=== PATIENT | female | born 1990 | race Caucasian/White ===

== ENCOUNTER 2024-02-08 12:29 | Emergency (ER) | payer OTHER, SELFPAY ==
[2024-02-08 12:46] VITALS: BP 121/78; PULSE 71; RESP 15; TEMP 36.6; O2SAT 100
--- NOTE | 2024-02-08 14:50 | ED.EAR ---
HPI - Ear Problem General Chief complaint: Ear Stated complaint: right ear clogged with drainage Time Seen by Provider: 02/08/24 14:08 History of Present Illness HPI Narrative: 33-year-old female presenting to the emergency department for evaluation for persistent right ear pain this been going on for over month. Patient states she has attempted to get follow-up with ENT but has not been successful. Patient states that she began having some bloody discharge from her right ear. Does have tympanostomy tubes in place. Related Data Allergies Allergy/AdvReac Type Severity Reaction Status Date / Time cigarette smoke Allergy Unknown Verified 02/08/24 12:36 diphenhydramine Allergy Anaphylaxis Verified 02/08/24 12:32 [From Benadryl] Penicillins Allergy Anaphylaxis Verified 02/08/24 12:32 Review of Systems Review of Systems: All systems reviewed & are unremarkable except as noted in HPI and below Exam Narrative: APPEARANCE: Well appearing, no pain, no distress, well-nourished. HEAD: normocephalic, atraumatic. EYES: PERRLA/EOMI, conjunctivae clear. NOSE: Normal no drainage EARS: Tympanostomy tube intact and visible, cerumen in ear, majority of TM obstructed THROAT: Pharynx clear, no exudate. NECK: Supple. No adenopathy, no masses. RESPIRATORY: Airway patent, respirations nonlabored. Clear to auscultation bilaterally, no rales, rhonchi, wheezing. CARDIOVASCULAR: Regular rate and rhythm without murmurs rubs or gallops. ABDOMINAL: Soft, nontender, nondistended, normal bowel sounds MUSCULOSKELETAL: Moves all extremities. Strength/ROM intact, No edema, No calf tenderness. NEURO: Alert. Cranial nerves II through XII intact. SKIN: Warm, dry. Normal Color Course Course Emergency Course: Patient is here was not irrigated due to the tympanostomy tube. Patient was started on oral antibiotics encouraged close follow-up with ENT. Vital Signs Vital signs: Vital Signs Temperature 97.9 F 02/08/24 12:46 Pulse Rate 71 02/08/24 12:46 Respiratory Rate 15 02/08/24 12:46 Blood Pressure 121/78 02/08/24 12:46 Pulse Oximetry 100 02/08/24 12:46 Temperature 97.6 F 02/08/24 15:53 Pulse Rate 84 02/08/24 15:53 Respiratory Rate 16 02/08/24 15:53 Blood Pressure 130/80 02/08/24 15:53 Pulse Oximetry 100 02/08/24 15:53 Medical Decision Making MDM Narrative Medical decision making narrative: 33-year-old female presents emergency department for evaluation for right ear pain. Patient was advised to take antibiotics as directed have close follow-up with ENT. Vital Signs Vital Signs: Vital Signs Temperature 97.9 F 02/08/24 12:46 Pulse Rate 71 02/08/24 12:46 Respiratory Rate 15 02/08/24 12:46 Blood Pressure 121/78 02/08/24 12:46 Pulse Oximetry 100 02/08/24 12:46 Temperature 97.6 F 02/08/24 15:53 Pulse Rate 84 02/08/24 15:53 Respiratory Rate 16 02/08/24 15:53 Blood Pressure 130/80 02/08/24 15:53 Pulse Oximetry 100 02/08/24 15:53 Discharge Plan Discharge Clinical Impression: Otitis media Patient Disposition: Home, Self-Care Condition: Stable Instructions: Antibiotic Form, Ear Infection (AC) Additional Instructions: Have close follow-up with your ENT. If you are unable to your ENT then follow-up with Dr. Allen. Antibiotic as directed until completed. If you have any worsening symptoms and please call or return to the emergency department. Prescriptions: New cefdinir 300 mg capsule 300 mg PO Q12H 7 Days Qty: 14 0RF Follow-up/Referrals: Brennan Allen MD [Physician] - UNKNOWN,DOCTOR [Primary Care Provider] -
[2024-02-08] MEDS: CEFDINIR 300 MG CAPSULE PO (15:30)
[2024-02-08 15:53] VITALS: BP 130/80; PULSE 84; RESP 16; TEMP 36.4; O2SAT 100
== END 2024-02-08 15:54 | disposition home or self-care (01) ==
PROVIDERS: Emergency Provider Emergency Medicine
DX: H66.91 Otitis media, unspecified, right ear (principal); Z96.22 Myringotomy tube(s) status
CPT/HCPCS: 99283; A9270

== ENCOUNTER 2024-04-02 12:13 | Emergency (ER) | payer OTHER, SELFPAY ==
--- NOTE | ~2024-04-02 | XR_ITS ---
EXAMINATION: XR knee LT 3V DATE: 04/02/2024 13:11 INDICATION: Left knee pain with bending and straightening the knee TECHNIQUE: Anteroposterior, oblique and crosstable lateral views of the left knee were obtained COMPARISON: None. FINDINGS: Alignment is normal. No fracture. Small marginal osteophytes in all 3 compartments of the knee with relatively preserved joint space on nonweightbearing imaging. Small sclerotic bone island in the dist al left femur. No joint effusion/layering lipohemarthrosis. Soft tissues are unremarkable. IMPRESSION: 1. No left knee joint effusion or acute osseous abnormality. 2. At least minimal tricompartmental osteoarthritis of the left knee although severity of joint space narrowing can be underestimated on nonweightbearing imaging. Reviewed, dictated and finalized at location B. IMPRESSION: 1. No left knee joint effusion or acute osseous abnormality. 2. At least minimal tricompartmental osteoarthritis of the left knee although s everity of joint space narrowing can be underestimated on nonweightbearing imag ing.
--- NOTE | ~2024-04-02 | XR_ITS ---
EXAMINATION: XR knee RT 3V DATE: 04/02/2024 13:11 INDICATION: Right knee pain. TECHNIQUE: 3 views of right knee were obtained. COMPARISON: None. FINDINGS: Alignment is normal. No fracture. There is mild tricompartmental osteoarthritis. There is a moderate-sized knee joint effusion. IMPRESSION: 1. Mild right knee osteoarthritis. 2. Moderate-sized knee joint effusion. Reviewed, dictated and finalized at location A.
[2024-04-02 12:20] VITALS: BP 115/81; PULSE 86; RESP 20; TEMP 37; O2SAT 100
[2024-04-02 12:38] VITALS: BP 123/81; PULSE 80; RESP 18; TEMP 36.8; O2SAT 100
--- NOTE | 2024-04-02 13:52 | ED.GENADULT ---
HPI - General Adult General Chief complaint: Extremity Injury, Lower Stated complaint: bilateral knee pain after falling in hole Time Seen by Provider: 04/02/24 12:37 Related Data Allergies Allergy/AdvReac Type Severity Reaction Status Date / Time cigarette smoke Allergy Unknown Verified 04/02/24 12:37 diphenhydramine Allergy Anaphylaxis Verified 04/02/24 12:37 [From Benadryl] Penicillins Allergy Anaphylaxis Verified 04/02/24 12:37 venlafaxine [From Effexor] Allergy Vomiting Verified 04/02/24 12:37 Course Vital Signs Vital signs: Vital Signs Temperature 98.6 F 04/02/24 12:20 Pulse Rate 86 04/02/24 12:20 Respiratory Rate 20 04/02/24 12:20 Blood Pressure 115/81 04/02/24 12:20 Pulse Oximetry 100 04/02/24 12:20 Oxygen Delivery Room Air 04/02/24 12:20 Temperature 98.3 F 04/02/24 12:38 Pulse Rate 80 04/02/24 12:38 Respiratory Rate 18 04/02/24 12:38 Blood Pressure 123/81 04/02/24 12:38 Pulse Oximetry 100 04/02/24 12:38 Oxygen Delivery Room Air 04/02/24 12:38 Medical Decision Making Vital Signs Vital Signs: Vital Signs Temperature 98.6 F 04/02/24 12:20 Pulse Rate 86 04/02/24 12:20 Respiratory Rate 20 04/02/24 12:20 Blood Pressure 115/81 04/02/24 12:20 Pulse Oximetry 100 04/02/24 12:20 Oxygen Delivery Room Air 04/02/24 12:20 Temperature 98.3 F 04/02/24 12:38 Pulse Rate 80 04/02/24 12:38 Respiratory Rate 18 04/02/24 12:38 Blood Pressure 123/81 04/02/24 12:38 Pulse Oximetry 100 04/02/24 12:38 Oxygen Delivery Room Air 04/02/24 12:38 Imaging Data Radiologist's impression: ITS Impressions Knee X-Ray 04/02/24 13:11 IMPRESSION: 1. No left knee joint effusion or acute osseous abnormality. 2. At least minimal tricompartmental osteoarthritis of the left knee although severity of joint space narrowing can be underestimated on nonweightbearing imaging. Knee X-Ray 04/02/24 13:12 IMPRESSION: 1. Mild right knee osteoarthritis. 2. Moderate-sized knee joint effusion. Discharge Plan Discharge Clinical Impression: Effusion of knee Patient Disposition: Home, Self-Care Condition: Stable Instructions: Swollen Knee Joint (ED), P.R.I.C.E. Treatment (ED) Additional Instructions: Return the ER if you have worsening pain/swelling, you have fever over 100.4? F, or you have additional concerns. Will wear compressive knee wrap wear Mike wrap around her knee. Continue to ice and rest the area. Prescriptions: New naproxen 375 mg tablet 375 mg PO BID Qty: 14 0RF No Action cefdinir 300 mg capsule 300 mg PO Q12H 7 Days Qty: 14 0RF Follow-up/Referrals: UNKNOWN,DOCTOR [Primary Care Provider] - 1 Week
== END 2024-04-02 14:10 | disposition home or self-care (01) ==
PROVIDERS: Emergency Provider Emergency Medicine
DX: M25.461 Effusion, right knee (principal)
CPT/HCPCS: 73562; 99283; 99284